=== PATIENT | male | born 1950 | race Caucasian/White ===

== ENCOUNTER 2018-08-20 17:37 | Inpatient (IN) | payer OTHER ==
[~2018-08-20] VITALS: Ht 167.6 cm; Wt 62.1 kg
[2018-08-20] MEDS ORDERED: SODIUM CHLORIDE 0.9% 1,000 ML IV ONE (18:30)
[2018-08-20 18:44] LABS: BASOPHILS % 0.4 % (0.0-2.0); HEMATOCRIT. 38.6 % (42.0-52.0); HEMOGLOBIN. 12.8 g/dL (14.0-18.0); LYMPHOCYTES % 10.2 % (20.0-50.0); MEAN CORPUSCULAR HEMOGLOBIN 26.7 pg (28.0-32.0); MEAN CORPUSCULAR VOLUME 80.5 fL (80.0-94.0); MEAN PLATELET VOLUME 8.2 fl (7.4-10.4); MONOCYTES % 4.2 % (2.0-8.0); NEUTROPHILS % 85.2 % (40.0-76.0); PLATELET 203 x1000/uL (130-400); RED BLOOD CELL COUNT 4.79 mill/uL (4.7-6.1)
[2018-08-20 18:48] LABS: CHLORIDE 102 mEq/L (98-107)
[2018-08-20] MEDS ORDERED: MORPHINE SULFATE 2 MG/ML CPJ (NOT FOR IM USE) IV PRN (19:30)
[2018-08-20] MEDS ORDERED: DEXT 5%/LACTATED RINGERS 1,000 ML IV SCH ×2 (19:30→23:30)
[2018-08-20] MEDS ORDERED: DEXAMETHASONE 4MG/ML 1ML VIAL IV ONE (19:30)
[2018-08-20] MEDS ORDERED: NICARDIPINE 100 MG in SODIUM CHLORIDE 0.9% 60 ML IV PRN ×2 (19:30→20:45)
[2018-08-20] MEDS ORDERED: LEVETIRACETAM 1000MG/100ML 100 ML IV NR (20:45)
[2018-08-20] MEDS ORDERED: ONDANSETRON HCL 4MG/2ML INJ IV ONE (21:15)
[2018-08-20] MEDS ORDERED: MORPHINE SULFATE 4 MG/ML CPJ (NOT FOR IM USE) IV ONE (21:15)
[2018-08-20] MEDS ORDERED: GLYB1.253 MT (22:01)
[2018-08-20] MEDS ORDERED: METF-414 MT (22:01)
[2018-08-20] MEDS ORDERED: LOT10 MT (22:01)
[2018-08-20 22:42] VITALS: BP 115/61
[2018-08-20] MEDS ORDERED: DOCUSATE SODIUM 100MG CAPSULE PO PRN (22:45)
[2018-08-20] MEDS ORDERED: HYDROMORPHONE HCL/PF 2MG/ML CPJ IV PRN (22:45)
[2018-08-20] MEDS ORDERED: ACETAMINOPHEN 650MG SUPP PR PRN (22:45)
[2018-08-20] MEDS ORDERED: ONDANSETRON HCL 4MG/2ML INJ IV PRN (22:45)
[2018-08-20 23:00] VITALS: BP 137/86
[2018-08-20 23:15] VITALS: BP 108/64
[2018-08-20 23:30] VITALS: BP 110/57
[2018-08-20] MEDS ORDERED: DEXT 5%/0.45% NACL 1000ML 1,000 ML IV SCH (23:30)
[2018-08-20 23:45] VITALS: BP 104/56
[2018-08-20] MEDS: DEXAMETHASONE 4MG/ML 1ML VIAL IV SCH (23:54)
[2018-08-21] VITALS (49 sets, daily range): BP systolic 100–149; BP diastolic 54–75
[2018-08-21 05:50] LABS: HEMOGLOBIN. 11.6 g/dL (14.0-18.0); MEAN CORPUSCULAR HEMOGLOBIN 26.8 pg (28.0-32.0); MEAN CORPUSCULAR VOLUME 80.9 fL (80.0-94.0); MEAN PLATELET VOLUME 8.7 fl (7.4-10.4); PLATELET 186 x1000/uL (130-400); RED BLOOD CELL COUNT 4.33 mill/uL (4.7-6.1)
[2018-08-21] MEDS: DEXAMETHASONE 4MG/ML 1ML VIAL IV SCH (05:55)
[2018-08-21 06:08] LABS: CHLORIDE 105 mEq/L (98-107)
[2018-08-21] MEDS ORDERED: INSULIN LISPRO 100 UNITS/ML SUBCUT ONE (08:15)
[2018-08-21] MEDS ORDERED: DEXTROSE 50% WATER 50ML SYRINGE IV PRN ×2 (08:15→12:15)
[2018-08-21] MEDS ORDERED: LEVETIRACETAM 500MG PREMIX 100 ML IV SCH (09:00)
[2018-08-21] MEDS: LEVETIRACETAM 500MG in SODIUM CHLORIDE 0.9% 100ML IV SCH ×2 (09:03→20:51)
[2018-08-21 10:03] LABS: CLARITY URINE CLEAR (CLEAR); COLOR URINE YELLOW (YELLOW); KETONES URINE 2+ (NEGATIVE); LEUKOCYTE ESTERASE URINE NEGATIVE (NEGATIVE); NITRITE URINE NEGATIVE (NEGATIVE); OCCULT BLOOD URINE NEGATIVE (NEGATIVE); PH URINE 6.5 (4.5-8.0); PROTEIN URINE NEGATIVE (NEGATIVE); SPECIFIC GRAVITY URINE 1.035 (1.005-1.030); UROBILINOGEN URINE 0.2 E.U./dL (0.2-1.0)
[2018-08-21] MEDS: BLOOD SUGAR DIAGNOSTIC STRIP TEST SCH ×3 (12:08→20:52)
[2018-08-21] MEDS: INSULIN LISPRO 100 UNITS/ML SUBCUT SCH ×3 (12:40→20:51)
[2018-08-21 14:13] LABS: PLATELET ESTIMATE NORMAL
[2018-08-21] MEDS ORDERED: BLOOD SUGAR DIAGNOSTIC STRIP TEST SCH (16:30)
[2018-08-21] MEDS ORDERED: DEXAMETHASONE 4MG/ML 1ML VIAL IV SCH (18:00)
== END 2018-08-21 22:15 | disposition short-term general hospital (02) | DRG 84 ==
LOC: ER 17:37 → MICUSO 19:53 → EDBEDREQ 20:04 → EDBEDREQTM 20:04 → ENRESERV 20:19
PROVIDERS: ADMIT Hospitalist; ATTEND Hospitalist
DX: S06.359A Traumatic hemorrhage of left cerebrum with loss of consciousness of unspecified duration, initial encounter (principal); E11.65 Type 2 diabetes mellitus with hyperglycemia; I10 Essential (primary) hypertension; W18.30XA Fall on same level, unspecified, initial encounter; M25.511 Pain in right shoulder; M19.90 Unspecified osteoarthritis, unspecified site; X58.XXXA Exposure to other specified factors, initial encounter; Y93.89 Activity, other specified; Y92.89 Other specified places as the place of occurrence of the external cause; Y99.8 Other external cause status; Z79.84 Long term (current) use of oral hypoglycemic drugs; Z79.899 Other long term (current) drug therapy
CPT/HCPCS: 36415; 71045; 73030; 82962; 83880; 84484; 93005; 93970; 96361; 96365; 96367; 96375; 99291; J1100; J1815; J1953; J2270; J2405; J3490; J7030; J7050